=== PATIENT | male | born 1975 | race Caucasian/White ===

== ENCOUNTER 2020-03-07 16:37 | Emergency (ER) | payer SELFPAY, OTHER ==
--- OUTSIDE RECORDS SUMMARY | 2020-03-07 16:39 | XMS REPORT | Continuity of Care Document ---
:1975 Author Organization [facility] t Address [address] [place] [address] Care Team Providers Name Role Phone Anat Rivera Attending Clinician Payers Payer Name Policy Type Policy Number Effective Date Expiration Date S ource Problems This patient has no known problems. Allergies, Adverse Reactions, Alerts Allergy Allergy Status Severity Reaction(s) Onset Inactive Treating Comm ents Source Name Type Date Date Clinician No Known DA Active U 2014-08 [facility] 08-26 [facility] 00:00: e 00 [facility] Medications This patient has no known medications. Procedures This patient has no known procedures. Encounters Start End Encounter Admission Attending Care Care Encounter Source Date/Time Date/Time Type Type Clinicians Facility Department ID 2020-02-24 2020-02-24 Emergency GALLO Cedeño [id number] 19:12:22 23:52:00 Gelacio Coppola [facility] [id number] [facility] [id number] [facility] [id number] [address] ([facility]) 2020-02-24 2020-02-24 Emergency E [id number] MH 18:18:00 18:18:00 [facility] Results Test Description Test Time Test Comments Results Result Comments Source Novel Coronavirus 2019 nCoV 2020-02-29 16:36:00 Test Item Value Reference Range Interpretation Comme nts Novel Coronavirus 2019 nCoV (test code = COVID19) POSITIVE Does patient have the clinical criteria consistent with COVID-19? YIs the patient going to be discharged home? Y- XR CHEST 1 [id number] 15:38:00 FAX: Efren Scott [phone] [place]: St: REG Name: FORD THOMAS [facility] : 1975 Age/S: 45/M [address] [facility] Unit#: [id number] Loc: [place] [address] Phys: Efren Scott GENERAL II FARM[employer]ER Acct: [id number] Dis Date: Status: REG ER PHONE #: [phone] Exam Date: 02/24/2020 1526 FAX #: [phone] Reason: COUGH EXAMS: CPT CODE: [id number] XR CHEST 1 V [id number] EXAM: Chest X-ray, 1 view; CLINICAL HISTORY: Fever, cough and congestion; FINDINGS: The lungs are clear, no infiltrates, no edema; no effusions; no pneumothorax; normal cardiomediastinal silhouette. IMPRESSION: Normal chest x-ray. Location code: [facility] at 1538 Reported and signed by: Severo Martins M.D. CC: Efren Scott NP Technologist: DEVIKA RUBIO RT(R) Trnscrd Date/Time/By: 02/24/2020 (1538) : By: Chance Orig Print D/T: S: 02/24/2020 (6139) PAGE 1 Signed Report
--- OUTSIDE RECORDS SUMMARY | 2020-03-07 16:39 | XMS REPORT | Summary of Care ---
:1975 Author Organization [facility] - [facility] Address [address] [place] [id number] Care Team Providers Name Role Phone Pcp, Does Not Have A Primary Care Provider Reason for Visit Reason Comments Other covid Auth/Cert Status Reason Specialty Diagnoses / Referred By Referred To Procedures Contact Contact Emergency Medicine [facility] Dept [address] [place] [phone] Fax: Encounter Details Date Type Department Care Team Description 02/24/2020 Emergency [facility] Gelacio Cedeño FNP Suspected Covid-[address] [place] [address] Virus Infection [address] [place] [address] (Primary Dx) [facility] [address] [place], [place] [phone] Allergies No Known Allergiesdocumented as of this encounter (statuses as of 02/24/2020) Medications Medication Sig Dispensed Refills Start Date End Date Status benzonatate 100 mg Take 1 capsule by 30 capsule 0 02/24/2020 Active capsuleIndications: mouth 3 (three) Suspected Covid-19 times daily as Virus Infection needed for Cough. albuterol 90 Inhale 2 Puffs 8.5 g 0 02/24/2020 A ctive mcg/actuation every 4 (four) inhalerIndications: hours as needed Suspected Covid-19 for Wheezing or Virus Infection Shortness of Breath. documented as of this encounter (statuses as of 02/24/2020) Active Problems No known active problemsdocumented as of this encounter (statuses as of 02/24/2020) Social History Tobacco Use Types Packs/Day Years Used Date Never Assessed Sex Assigned at Date Recorded Not on file Job Start Date Occupation Industry Not on file Not on file Not on file Travel History Travel Start Travel End No recent travel history available. COVID-19 Exposure Response Date Recorded In the last month, have you been in contact with Yes 02/24/2020 7:07 PM CDT someone who was confirmed or suspected to have Coronavirus / COVID-19? documented as of this encounter Last Filed Vital Signs Vital Sign Reading Time Taken Comments Blood Pressure 129/89 02/24/2020 8:40 PM CDT Pulse 99 02/24/2020 8:40 PM CDT Temperature 36.8 C (98.3 F) 02/24/2020 7:09 PM CDT Respiratory Rate 22 02/24/2020 8:40 PM CDT Oxygen Saturation 99% 02/24/2020 8:40 PM CDT Inhaled Oxygen Concentration - - Weight 102.1 kg (225 lb) 02/24/2020 7:09 PM CDT Height - - Body Mass Index - - documented in this encounter Discharge Instructions InstructionsGelacio Cedeño FNP - 02/24/2020DIAGNOSIS 1. Suspected COVID-19 Virus Infection NO LIFE-THREATENING FINDINGS ON TODAY'S EXAM. RECOMMEND FOLLOW-UP WITH A PRIMARY CARE PROVIDER OR SPECIALIST IN 2-5 DAYS, ESPECIALLY IF NO IMPROVEMENT IN SYMPTOMS. MAY FOLLOW-UP WITH A PROVIDER OF YOUR CHOICE, SUCH : 1. A PHYSICIAN OF YOUR CHOICE 2. [address] [place] [address], [address] [place] [address]; [phone] 3. [facility], [address] [place] [address]; [phone] OR, IF YOU WISH TO FOLLOW-UP WITHIN THE [facility], MAY TRY THESE OPTIONS (CLINIC APPOINTMENTS AVAILABLE ON [id number] BASIS): 1. SCHEDULE AN APPOINTMENT ONLINE AT WWW.[facility] 2. OR CALL THE [facility] AT OR 3. OR CALL YOUR [facility] PHYSICIAN'S OFFICE DIRECTLY IF YOU ARE ALREADY AN ESTABLISHED [facility] PATIENT. RETURN TO ER FOR WORSENING OF SYMPTOMS. AttachmentsThe following attachments cannot be sent through Care Everywhere. Coronavirus Disease 2019 (COVID-19): Prevention (Haitian)documented in this encounter Plan of Treatment Name Type Priority Associated Diagnoses Date/Ti me CORONAVIRUS COVID-19 LAB STAT Suspected Covid-19 V irus 02/24/2020 8:45 PM TESTING Infection CDT Name Type Priority Associated Diagnoses Order S chedule CORONAVIRUS COVID-19 LAB Routine Suspected Covid-19 O NCE for 1 Occurrences TESTING Virus Infection starting until 0 Health Maintenance Due Date Last Done Comments DTaP,Tdap,and Td Vaccines (1 - 01/16/1988 Tdap) Depression Screening 1989 INFLUENZA VACCINE (#1) 2020 PNEUMOCOCCAL 0-64 YEARS COMBINED Aged Out No longer eligible based on SERIES patient's age to complete this topic documented as of this encounter Procedures Procedure Name Priority Date/Time Associated Diagnosis Comme nts CONSENT/REFUSAL FOR Routine 02/24/2020 7:00 PM CDT DIAGNOSIS AND TREATMENT NOTICE OF PRIVACY Routine 02/24/2020 7:00 PM CDT PRACTICES documented in this encounter Results Not on filedocumented in this encounter Visit Diagnoses Diagnosis Suspected Covid-19 Virus Infection - Chantale espinoza documented in this encounter Additional Health Concerns Infection Onset Date Last Indicated Resolved Time COVID-19 Rule Out 02/24/2020 02/24/2020 documented as of this encounter
--- NOTE | 2020-03-07 17:44 | ER ---
Nurse's Notes [facility] Name: Ash Heaton Age: 45 yrs Sex: Male : 1975 Arrival Date: 03/07/2020 Time: 16:38 Bed 19 Private MD: Diagnosis: Bronchitis, not specified as acute or chronic Presentation: 03/07 16:46 Chief complaint: Patient states: Cough x congestion 3-4 days. Nausea and diarrhea x 4-5 ca1 days. No sense of taste and smell. SOB with taking a deep breath. Denies vomiting. Denies fever. 3 co-workers tested positive or Covid-19. Coronavirus screen: Patient reports a cough. Patient reports shortness of breath or difficulty breathing. Patient denies measured and/or subjective temperature greater than 100.4F prior to today's visit. Patient denies travel on a cruise ship or to a country the [facility] currently lists as an affected area. Patient reports contact with known and/or suspected case of COVID-19. Patient instructed to continue to wear a mask when interacting with others. Patient moved to private room, placed in contact and droplet isolation with eye protection until further assessment. Co-workers x 3 tested positive for Covid-19. Ebola Screen: Patient negative for fever greater than or equal to 101.5 degrees Fahrenheit, and additional compatible Ebola Virus Disease symptoms Patient denies exposure to infectious person. Patient denies travel to an Ebola-affected area in the 21 days before illness onset. No symptoms or risks identified at this time. Initial Sepsis Screen: Does the patient meet any 2 criteria? No. Patient's initial sepsis screen is negative. Does the patient have a suspected source of infection? No. Patient's initial sepsis screen is negative. Risk Assessment: Do you want to hurt yourself or someone else?. Onset of symptoms was March 07, 2020. 16:46 Method Of Arrival: Ambulatory ca1 16:46 Acuity: EPHRAIM 3 ca1 Triage Assessment: 17:11 General: Appears in no apparent distress. comfortable, Behavior is calm, cooperative. ls4 GI: Reports diarrhea. Historical: - Allergies: 16:49 No Known Allergies; ca1 - Home Meds: 16:49 None [Active]; ca1 - PMHx: 16:49 None; ca1 - PSHx: 16:49 None; ca1 - Immunization history:: Adult Immunizations not up to date. - Social history:: Smoking status: Patient reports the use of cigarette tobacco products, smokes one pack cigarettes per day. Screenin:10 Abuse screen: Denies threats or abuse. Denies injuries from another. Nutritional ls4 screening: No deficits noted. Tuberculosis screening: No symptoms or risk factors identified. Fall Risk None identified. Assessment: 17:26 GI: Abdomen is non-distended, Bowel sounds present X 4 quads. Abd is soft and non ls4 tender X 4 quads. 17:26 Pain: Denies pain. ls4 Vital Signs: 16:46 BP 129 / 82; Pulse 89; Resp 18 S; Temp 98.1(TE); Pulse Ox 100% on R/A; Weight 106.59 kg ca1 (R); Height 6 ft. 3 in. (190.50 cm) (R); 18:03 BP 122 / 78; Pulse 84; Resp 14; Pulse Ox 99% on R/A; Pain 0/10; ls4 16:46 Body Mass Index 29.37 (106.59 kg, 190.50 cm) ca1 ED Course: 16:38 Patient arrived in ED. ag5 16:48 Irish Hidalgo [facility]-C [facility]. snw 16:48 Pascual Hull MD is Attending Physician. snw 16:48 Triage completed. ca1 16:49 Arm band placed on right wrist. ca1 17:10 Patient has correct armband on for positive identification. Bed in low position. Call ls4 light in reach. Side rails up X 1. 17:15 Ramona Denson, RN is Primary Nurse. ls4 17:53 Chest Single View XRAY In Process Unspecified. EDMS 18:04 No provider procedures requiring assistance completed. Patient did not have IV access ls4 during this emergency room visit. Administered Medications: 17:47 Drug: Tussionex Pennkinetic ER 5 ml Route: PO; ls4 18:03 Follow up: Response: No adverse reaction; Marked relief of symptoms ls4 Outcome: 17:44 Discharge ordered by . snw 18:04 Discharged to home ambulatory. ls4 18:04 Condition: stable 18:04 Discharge instructions given to patient, Instructed on discharge instructions, follow up and referral plans. safety practices, Demonstrated understanding of instructions, follow-up care. 18:13 Patient left the ED. ls4 Addendum: 03/11/2020 14:28 Addendum: COVID-19 Result: Negative result given to RN to notify pt. Notified pt of d m5 negative COVID 19 swab results. Pt advised that even with a negative test result they should remain in isolation until symptom free for 3 days without medication. Pt also advised to return to the ED for worsening symptoms. Signatures: Dispatcher [employer] EDNC Jamila Begum RN RN dm5 Irish Hidalgo, COMMERCIAL ESCROW OFFICER-C COMMERCIAL ESCROW OFFICER-Csnw Ramona Denson RN RN ls4 Elena Ying RN RN ca1 Virgie, Oksana 5
--- NOTE | 2020-03-07 17:44 | EDPHYS ---
Physician Documentation [facility] Name: Ash Heaton Age: 45 yrs Sex: Male : 1975 Arrival Date: 03/07/2020 Time: 16:38 Bed 19 Private MD: ED Physician Pascual Hull HPI: 03/07 17:47 This 45 yrs old Male presents to ER via Ambulatory with complaints of snw Nausea/Vomiting/Diarrhea, Cough. 17:47 The patient presents to the emergency department with nausea, vomiting, diarrhea. snw Onset: The symptoms/episode began/occurred suddenly, 3 day(s) ago, and became persistent. Possible causes: sick contacts, by co-worker(s). The symptoms are aggravated by deep breaths start paroxysmal coughing. Associated signs and symptoms: Pertinent positives: diarrhea, nausea, vomiting. Severity of symptoms: At their worst the symptoms were mild moderate. The patient has not experienced similar symptoms in the past. It is unknown whether or not the patient has recently seen a physician. 2-3 co-workers + for CoVid 19. Historical: - Allergies: 16:49 No Known Allergies; ca1 - Home Meds: 16:49 None [Active]; ca1 - PMHx: 16:49 None; ca1 - PSHx: 16:49 None; ca1 - Immunization history:: Adult Immunizations not up to date. - Social history:: Smoking status: Patient reports the use of cigarette tobacco products, smokes one pack cigarettes per day. ROS: 17:45 Constitutional: Negative for fever, chills, and weight loss, Eyes: Negative for injury, snw pain, redness, and discharge, ENT: Negative for injury, pain, and discharge, Neck: Negative for injury, pain, and swelling, Cardiovascular: Negative for chest pain, palpitations, and edema, Back: Negative for injury and pain, : Negative for injury, bleeding, discharge, and swelling, MS/Extremity: Negative for injury and deformity, Skin: Negative for injury, rash, and discoloration, Neuro: Negative for headache, weakness, numbness, tingling, and seizure, Psych: Negative for depression, anxiety, suicide ideation, homicidal ideation, and hallucinations. 17:45 Respiratory: Positive for cough. 17:45 Abdomen/GI: Positive for nausea, vomiting, and diarrhea. Exam: 17:45 Constitutional: This is a well developed, well nourished patient who is awake, alert, snw and in no acute distress. Head/Face: Normocephalic, atraumatic. Eyes: Pupils equal round and reactive to light, extra-ocular motions intact. Lids and lashes normal. Conjunctiva and sclera are non-icteric and not injected. Cornea within normal limits. Periorbital areas with no swelling, redness, or edema. ENT: Nares patent. No nasal discharge, no septal abnormalities noted. Tympanic membranes are normal and external auditory canals are clear. Oropharynx with no redness, swelling, or masses, exudates, or evidence of obstruction, uvula midline. Mucous membranes moist. Neck: Trachea midline, no thyromegaly or masses palpated, and no cervical lymphadenopathy. Supple, full range of motion without nuchal rigidity, or vertebral point tenderness. No Meningismus. Chest/axilla: Normal chest wall appearance and motion. Nontender with no deformity. No lesions are appreciated. Cardiovascular: Regular rate and rhythm with a normal S1 and S2. No gallops, murmurs, or rubs. Normal PMI, no JVD. No pulse deficits. Abdomen/GI: Soft, non-tender, with normal bowel sounds. No distension or tympany. No guarding or rebound. No evidence of tenderness throughout. Back: No spinal tenderness. No costovertebral tenderness. Full range of motion. Skin: Warm, dry with normal turgor. Normal color with no rashes, no lesions, and no evidence of cellulitis. MS/ Extremity: Pulses equal, no cyanosis. Neurovascular intact. Full, normal range of motion. Neuro: Awake and alert, GCS 15, oriented to person, place, time, and situation. Cranial nerves II-XII grossly intact. Motor strength 5/5 in all extremities. Sensory grossly intact. Cerebellar exam normal. Normal gait. Psych: Awake, alert, with orientation to person, place and time. Behavior, mood, and affect are within normal limits. 17:45 Respiratory: the patient does not display signs of respiratory distress, Respirations: normal, Breath sounds: are clear throughout, no bronchial sounds, persistent cough. Vital Signs: 16:46 BP 129 / 82; Pulse 89; Resp 18 S; Temp 98.1(TE); Pulse Ox 100% on R/A; Weight 106.59 kg ca1 (R); Height 6 ft. 3 in. (190.50 cm) (R); 18:03 BP 122 / 78; Pulse 84; Resp 14; Pulse Ox 99% on R/A; Pain 0/10; ls4 16:46 Body Mass Index 29.37 (106.59 kg, 190.50 cm) ca1 MDM: 16:48 Patient medically screened. snw 17:46 Data reviewed: vital signs, nurses notes. Data interpreted: Pulse oximetry: on room air snw is 100 %. Interpretation: normal. Counseling: I had a detailed discussion with the patient and/or guardian regarding: the historical points, exam findings, and any diagnostic results supporting the discharge/admit diagnosis, the presence of at least one elevated blood pressure reading (>120/80) during this emergency department visit, the need for outpatient follow up, for definitive care, to return to the emergency department if symptoms worsen or persist or if there are any questions or concerns that arise at home. Special discussion: I have referred the patient to see his PCP for further evaluation of high blood pressure. Based on the history and exam findings, there is no indication for further emergent testing or inpatient evaluation. I discussed with the patient/guardian the need to see the primary care provider for further evaluation of the symptoms. 03/07 17:12 Order name: COVID-19 snw 03/07 17:12 Order name: Chest Single View XRAY snw Administered Medications: 17:47 Drug: Tussionex Pennkinetic ER 5 ml Route: PO; ls4 18:03 Follow up: Response: No adverse reaction; Marked relief of symptoms ls4 Disposition: 22:09 Co-signature as Attending Physician, Pascual Hull MD I agree with the assessment and glo plan of care. Disposition: 03/07/20 17:44 Discharged to Home. Impression: Bronchitis, not specified as acute or chronic. - Condition is Stable. - Discharge Instructions: Acute Bronchitis, Adult, Hypertension, Cough, Adult. - Prescriptions for Tessalon Perles 100 mg Oral Capsule - take 1 capsule by ORAL route every 8 hours As needed; 15 capsule. - Medication Reconciliation Form, Thank You Letter, Antibiotic Education, Prescription Opioid Use form. - Follow up: Emergency Department; When: As needed; Reason: Worsening of condition. Follow up: Private Physician; When: 2 - 3 days; Reason: Recheck today's complaints, Continuance of care, Re-evaluation by your physician. Signatures: Dispatcher [employer] EDPascual Mcleod MD MD cha Waters, Shelly, WHEEL WORKER-C WHEEL WORKER-Csnw Ramona Denson, RN RN ls4 Elena Ying RN RN ca1 Corrections: (The following items were deleted from the chart) 18:13 17:44 03/07/2020 17:44 Discharged to Home. Impression: Bronchitis, not specified as ls4 acute or chronic. Condition is Stable. Forms are Medication Reconciliation Form, Thank You Letter, Antibiotic Education, Prescription Opioid Use. Follow up: Emergency Department; When: As needed; Reason: Worsening of condition. Follow up: Private Physician; When: 2 - 3 days; Reason: Recheck today's complaints, Continuance of care, Re-evaluation by your physician. snw
[2020-03-07] MEDS ORDERED: HYDROCODONE/CHLORPHEN 5 ML/OSYR ONE (17:59)
[2020-03-07 18:27] VITALS: TEMP 98.1
[2020-03-07 18:32] VITALS: BP 122/78; O2SAT 99
--- NOTE | 2020-03-07 21:23 | RAD REPORT ---
EXAM DESCRIPTION: RAD - Chest Single View - 03/07/2020 5:53 pm CLINICAL HISTORY: SOB, cough and congestion COMPARISON: Single-view chest May 2014 TECHNIQUE: AP portable chest image was obtained 03/07/2020 5:53 pm . FINDINGS: Lungs are clear. Heart and vasculature are normal. No measurable pleural effusion and no p neumothorax. No acute bony abnormality seen. No acute aortic findings suspected. IMPRESSION: No acute cardiopulmonary process. No significant change from comparison.
== END 2020-03-07 18:13 | disposition home or self-care (01) ==
LOC: ER 16:37
DX: J40 Bronchitis, not specified as acute or chronic (principal); Z20.828 Contact with and (suspected) exposure to other viral communicable diseases; F17.210 Nicotine dependence, cigarettes, uncomplicated
CPT/HCPCS: 71045; 99283; U0001